=== PATIENT | female | born 1960 | race Hispanic/Latino ===

== ENCOUNTER 2016-09-01 20:34 | Emergency (ER) | payer OTHER ==
[~2016-09-01] VITALS: Ht 162.6 cm; Wt 70.9 kg
[~2016-09-01 20:34] MED LIST: LEVO50TA83 PO
[2016-09-01 21:01] VITALS: BP 169/81; PULSE 57; RESP 22; O2SAT 98
--- NOTE | 2016-09-01 22:21 | ED.REPORT ---
HPI-General Illness Date of Service Sep 01, 2016 ED Provider: Dr. Yossi Valdez MD A 55 year old female with a history of hyperlipidemia presents to the ED complaining of generalized fatigue that began earlier this afternoon. Patient reports one episode of chest discomfort and SOB. She states that her "head is tired". Her symptoms resolved temporarily after taking one dose of Lisinopril. She reports an episode of hypertension prior to the Lisinopril. Patient denies cough,abdominal pain, fever, chills or dysuria. Nursing Notes Stated Complaint: HIGH BLOOD PRESSURE Chief Complaint: General Complaint Nursing Notes Reviewed: Yes Allergies: Coded Allergies: No Known Drug Allergies (Verified Allergy, Unknown, 09/01/16) Scheduled Levothyroxine-Expunged Drug, Do Not Renew! (Synthroid-Expunged Drug, Do Not Renew!) 50 Mcg Tablet 50 MCG PO DAILY General Time Seen by MD: 22:20 Chief Complaint Other (Fatigue) Hx Obtained From: Patient Arrived By: Walk-in Sudden in Onset?: No Symptom Duration: Since onset Location: : Head Quality: Aching Radiation: : Does not radiate Severity: Current: Mild Severity: Maximum: Mild Associated with: Reports: Chest pain, Shortness of breath, Denies: Abdominal pain, Fever Pertinent Negative: Pt denies other symptoms Relieved by: Prescription meds Recent Healthcare: No recent doctor visit, No recent hospitalization Past Medical History Past Medical History Hyperlipidemia Past Surgical History None reported Social History Other Social History: Good social support, Local resident Ambulatory Status Independent Review of Systems Full Review of Systems Constitutional: Reports: Fatigue, Denies: Chills, Fever Respiratory: Reports: Shortness of breath Cardiovascular: Reports: Chest pain GI: Denies: Abdominal pain, Nausea, Vomiting Female: Denies: Dysuria Neurologic: Reports: Headache Complete sys rev & neg: except as marked. Physical Exam Vital Signs Vital Signs Date Time Temp Pulse Resp B/P Pulse Ox O2 Delivery O2 Flow Rate FiO2 09/02/16 01:43 61 17 120/50 96 Room Air 09/01/16 21:01 36.2 57 22 169/81 98 Room Air Initial VS: Reviewed, Vital signs abnormal Neck: Supple, Non-tender, Full range of motion Extremities: Vascular intact, Neuro intact, No swelling, No tenderness Skin: Warm, Dry, No cyanosis Neurologic: Alert, Oriented, Nonfocal Psychiatric: Mood/affect normal, Behavior normal, Normal thought content General/Constitutional: Awake, Alert, No acute distress Head / Eyes: Atraumatic, Normocephalic, PERRL Respiratory / Chest: Atraumatic, Breath sounds NL, Breath sounds = bilat, No respiratory distress Cardiovascular: Heart rate NL, Regular rhythm, Heart sounds NL Abdomen: Atraumatic, Soft, Non-tender Interpretation & Diagnostics Lab Results Interpretation Result Diagram: 09/01/16223409/01/16 2235 Test 09/01/16 22:35 09/01/16 23:00 White Blood Count 6.2th/mm3 (3.8-10.1) Red Blood Count 4.53mil/mm3 (3.90-5.20) Hemoglobin 13.2g/dL (12.0-15.6) Hematocrit 39.2% (35.0-46.0) Mean Corpuscular Volume 86.5fL (81-100) Mean Corpuscular Hemoglobin 29.1pg (27.0-35.0) Mean Corpuscular Hemoglobin Concent 33.7% (32.0-37.0) Red Cell Distribution Width 11.9% (12.3-15.4) Platelet Count 229bil/L (150-400) Neutrophils (%) (Auto) 36.6% (40-74) Lymphocytes (%) (Auto) 48.8% (14-46) Monocytes (%) (Auto) 12.6% (4-12) Eosinophils (%) (Auto) 1.8% (0-5) Basophils (%) (Auto) 0.2% (0-3) Sodium Level 138mEq/L (134-144) Potassium Level 4.0mEq/L (3.5-5.2) Chloride Level 98mEq/L (97-108) Carbon Dioxide Level 25mmol/L (18-29) Blood Urea Nitrogen 21mg/dL (6-24) Creatinine 0.58mg/dL (0.57-1.00) Estimat Glomerular Filtration Rate 155mL/min (>59) Glucose Level 126mg/dL (60-99) Calcium Level 9.4mg/dL (8.5-10.1) Magnesium Level 2.0mg/dL (1.6-2.6) Total Bilirubin 0.5mg/dL (0.0-1.2) Aspartate Amino Transf (AST/SGOT) 27U/L (0-50) Alanine Aminotransferase (ALT/SGPT) 51U/L (0-32) Alkaline Phosphatase 65U/L (25-150) Troponin T 0.010ug/L (0.0-0.011) Total Protein 7.6g/dL (6.4-8.4) Albumin 4.1g/dL (3.4-5.0) Hold Chong Top Tube Received (Received) Urine Color Straw (YELLOW) Urine Appearance Hazy (CLEAR,HAZY) Urine pH 5.5 (5.0-8.0) Urine Specific [place] 1.016 (1.003-1.035) Urine Protein Negativemg/dL (NEG,TRACE) Urine Glucose (UA) Negativemg/dL (NEGATIVE) Urine Ketones Negativemg/dL (NEGATIVE) Urine Occult Blood Negative (NEGATIVE) Urine Nitrite Negative (NEGATIVE) Urine Bilirubin Negative (NEGATIVE) Urine Urobilinogen Normalmg/dL (NORMAL) Urine Leukocyte Esterase Moderate (NEGATIVE) Urine RBC 0-2/hpf (0-2) Urine WBC 11-50/hpf (0-5) Urine Epithelial Cells Moderate/hpf (NONE-MOD) Urine Crystals None seen (NONE SEEN) Urine Bacteria Moderate/hpf (NONE-FEW) Urine Hyaline Casts None/lpf (NONE) Urine Granular Casts None seen (NONE SEEN) Urine Waxy Casts None seen (NONE SEEN) Urine Red Blood Cell Casts None seen (NONE SEEN) Urine White Blood Cell Casts None seen (NONE SEEN) Urine Mucus Present (None Seen) Urine Trichomonas None seen (NONE SEEN) Urine Yeast None (NONE SEEN) Urinalysis Comment None Urine Culture Reflexed Indicated Hold Urine Received (Received) Lab Results Interpretation: Greater than 50 white blood cells in the urine, culture pending. ECG Interpretation ECG Interpretation: Sinus Rhythm Rate 62 Time: 10:57 Interpreted by: ED physician X-Ray Chest Interpretation Chest Xray Interpretation: IMPRESSION: No acute Interpretation / Wet Read by: Wet read ED physician Re-Eval/Medical Decision Med Decision/Clinical Course 55-year-old female who presents with vague symptoms which may be related to high blood pressure at home. She took her medications and her blood pressure did normalize by the time she got here. Labs were unremarkable with the exception of white cells in her urine. She will be treated for urinary tract infection Time of Eval: 00:08 Patient Status: Condition improved Re-Evaluation/Progress Note: Patient is rechecked. Her symptoms have improved and she is agreeable to discharge at this time. All questions are addressed. She understands and agrees with the plan. Counseled Regarding: Diagnosis, Lab results, Need for follow-up, When/why to return to ED Discharge & Departure Primary Impression: Urinary tract infection Urinary tract infection type: site unspecified Hematuria presence: without hematuria Qualified Code: N39.0 - Urinary tract infection, site not specified Additional Impression: Labile hypertension Disposition: Home Discharge Condition All VS Reviewed: Yes Condition: Stable Patient Instructions: Urinary Tract Infection in Women (ED) Additional Instructions: Shagufta has a urinary tract infection. She was given Rocephin 2 g IV in the emergency room, strong long-acting IV antibiotic. Tomorrow she can start Keflex (cephalexin) 500 mg by mouth 3 times a day, #30 dispensed. Drink plenty of fluids. Cranberry juice. Recheck in 2-3 days if she is not improving. Repeat Urine in 2 or 3 2-3 weeks to make sure the infection gone. Her other symptoms were likely due to high blood pressure which was mostly corrected by the time she arrived here. Referrals: Keerthi Barnett MD (PCP) Mikhail Attestation Portions of this note were transcribed by Lazaro Marcial. I, Dr. Valdez personally performed the history, physical exam and medical decision-making; I reviewed and confirmed the accuracy of the information in the transcribed note. Signed by: Mikhail Amaya, 09/02/16 0146. copies to: Keerthi Barnett MD, Yossi Billy MD Sep 01, 2016 22:21 LAZARO MARCIAL Sep 01, 2016 22:29
[2016-09-01 22:47] LABS: BASOPHILS % (AUTO) 0.2 % (0-3); EOSINOPHILS % (AUTO) 1.8 % (0-5); MONOCYTES % (AUTO) 12.6 % (4-12); Mean Corpuscular Hemoglobin 29.1 pg (27.0-35.0); Mean Corpuscular Volume 86.5 fL (81-100); NEUTROPHILS % (AUTO) 36.6 % (40-74); Platelet Count 229 bil/L (150-400)
[2016-09-01 23:09] LABS: TROPONIN T 0.01 ug/L (0.0-0.011)
[2016-09-02 00:39] LABS: APPEARANCE,URINE HAZY (CLEAR,HAZY); COLOR,URINE STRAW (YELLOW); OCCULT BLOOD,URINE NEGATIVE (NEGATIVE); PH,URINE 5.5 (5.0-8.0); UROBILINOGEN,URINE NORMAL (NORMAL)
[2016-09-02] MEDS ORDERED: cefTRIAXone Inj 2,000 MG in Dextrose 5% Minibag Plus 50 ML IV ONE (00:50)
[2016-09-02 01:43] VITALS: BP 120/50; PULSE 61; RESP 17; O2SAT 96
--- NOTE | 2016-09-02 08:07 | DRSVH ---
PROCEDURE: X-RAY CHEST ONE VIEW, PORTABLE ([id number]) INDICATIONS: cp TECHNIQUE: One view of the chest was acquired. COMPARISON: None. FINDINGS: Surgical changes and devices: None. Lungs and pleura: No pleural effusions or pneumothorax. Lungs are clear. Mediastinum: Mediastinal contours appear normal. Heart size is normal. Bones and chest wall: No suspicious bony lesions. Overlying soft tissues appear unremarkable. IMPRESSION: Normal for age, source of chest pain is not seen. Dictated by: Kris Huizar M.D. on 09/02/2016 at 8:05 Approved by: Kris Huizar M.D. on 09/02/2016 at 8:05
[2016-09-02] MEDS ORDERED: _Cephalexin 500 mg Capsule PO SCH (08:30)
== END 2016-09-02 01:47 | disposition home or self-care (01) ==
LOC: SED 20:34
DX: N39.0 Urinary tract infection, site not specified (principal); I10 Essential (primary) hypertension; E78.5 Hyperlipidemia, unspecified
CPT/HCPCS: 36415; 71010; 80053; 81000; 83735; 84484; 85025; 87086; 87088; 93005; 96365; 99285; J0696

== ENCOUNTER 2016-12-19 12:20 | Emergency (ER) | payer OTHER ==
[~2016-12-19] VITALS: Ht 165.1 cm; Wt 93.6 kg
[2016-12-19 12:24] VITALS: BP 151/67; PULSE 63; RESP 17; O2SAT 99
[2016-12-19] MEDS ORDERED: 0.9% Sodium Chloride 1,000 ML IV ONE (12:57)
[2016-12-19] MEDS ORDERED: MetoCLOpramide 5 mg/mL 2 mL Inj IVPUSH ONE (13:00)
[2016-12-19] MEDS ORDERED: Ondansetron 2 mg/mL 2 mL Inj IVPUSH PRN (13:00)
[2016-12-19] MEDS ORDERED: Ketorolac 15 mg/mL Inj IVPUSH ONE (13:00)
[2016-12-19 13:04] LABS: BASOPHILS % (AUTO) 0.2 % (0-3); EOSINOPHILS % (AUTO) 1.7 % (0-5); MONOCYTES % (AUTO) 9.4 % (4-12); Mean Corpuscular Hemoglobin 29.5 pg (27.0-35.0); Mean Corpuscular Volume 84.3 fL (81-100); NEUTROPHILS % (AUTO) 34.2 % (40-74); Platelet Count 255 bil/L (150-400)
[2016-12-19 13:30] VITALS: BP 134/65; PULSE 55; RESP 17; O2SAT 96
[2016-12-19 13:44] LABS: Lipase 47 U/L (13-60)
[2016-12-19 13:45] LABS: TROPONIN T < 0.010 ug/L (0.0-0.011)
--- NOTE | 2016-12-19 14:18 | ED.REPORT ---
HPI-NVD Date of Service Dec 19, 2016 ED Provider: Rai Cotto MD The pt is a 56 y/o female w/ a hx of hyperlipidemia presenting to the ED via EMS due to vomiting onset three hours ago. The pt felt fine this morning, ate lunch, and began feeling ill. The pt is also experiencing dizziness. Denies diarrhea, or headache. No one else in her family is sick. No diarrhea. Moderate headache. Nursing Notes Stated Complaint: NAUSEA, VOMITING, SWEATING Chief Complaint: Vomiting Nursing Notes Reviewed: Yes Allergies: Coded Allergies: No Known Drug Allergies (Verified Allergy, Unknown, 09/01/16) Scheduled Levothyroxine-Expunged Drug, Do Not Renew! (Synthroid-Expunged Drug, Do Not Renew!) 50 Mcg Tablet 50 MCG PO DAILY Scheduled PRN Ondansetron ODT (Zofran ODT) 4 Mg Tablet 4 MG PO Q4H PRN PRN For Nausea General Time Seen by MD: 12:49 Chief Complaint Vomiting Arrived By: Ambulance Onset Occurred: 1 - 4 hours ago Symptom Duration: Since onset Recent Healthcare: No recent hospitalization, Recent doctor visit Similar Sx Previous: Yes Past Medical History Past Medical History Hyperlipidemia Denies: Diabetes mellitus Past Surgical History None reported Smoking History Unknown if Ever Smoker Social History Other Social History: Good social support, Local resident Ambulatory Status Independent Review of Systems GI: Reports: Vomiting, Denies: Diarrhea Neurologic: Reports: Dizziness, Denies: Headache Complete sys rev & neg: except as marked. Physical Exam Initial Vital Signs Vital Signs (First) Date Time Temp Pulse Resp B/P Pulse Ox O2 Delivery O2 Flow Rate FiO2 12/19/16 12:24 36.2 63 17 151/67 99 Room Air Initial VS: Reviewed Head / Eyes: Atraumatic, Normocephalic, PERRL ENT: Mucous membranes moist, Conjunctiva normal, No scleral icterus Neck: Supple, Non-tender, Full range of motion Respiratory: Breath sounds normal, Clear to auscultation, No respiratory distress Cardiovascular: Regular rate & rhythm, Heart sounds normal, Intact distal pulses Extremities: Vascular intact, Neuro intact, No swelling, No tenderness Skin: Warm, Dry, No cyanosis Neurologic: Alert, Oriented, Nonfocal Psychiatric: Mood/affect normal, Behavior normal, Normal thought content General/Constitutional: Awake, Alert Abdomen: Atraumatic, Soft, Non-tender Interpretation & Diagnostics Lab Results Interpretation Result Diagram: 12/19/16 1247 12/19/16 1247 Test 12/19/16 12:47 White Blood Count 10.2th/mm3 (3.8-10.1) Red Blood Count 4.98mil/mm3 (3.90-5.20) Hemoglobin 14.7g/dL (12.0-15.6) Hematocrit 42.0% (35.0-46.0) Mean Corpuscular Volume 84.3fL (81-100) Mean Corpuscular Hemoglobin 29.5pg (27.0-35.0) Mean Corpuscular Hemoglobin Concent 35.0% (32.0-37.0) Red Cell Distribution Width 11.8% (12.3-15.4) Platelet Count 255bil/L (150-400) Neutrophils (%) (Auto) 34.2% (40-74) Lymphocytes (%) (Auto) 54.2% (14-46) Monocytes (%) (Auto) 9.4% (4-12) Eosinophils (%) (Auto) 1.7% (0-5) Basophils (%) (Auto) 0.2% (0-3) Sodium Level 142mEq/L (134-144) Potassium Level 3.8mEq/L (3.5-5.2) Chloride Level 102mEq/L (97-108) Carbon Dioxide Level 22mmol/L (18-29) Blood Urea Nitrogen 17mg/dL (6-24) Creatinine 0.59mg/dL (0.57-1.00) Estimat Glomerular Filtration Rate 152mL/min (>59) Glucose Level 132mg/dL (60-99) Calcium Level 9.3mg/dL (8.5-10.1) Magnesium Level 2.0mg/dL (1.6-2.6) Total Bilirubin 0.7mg/dL (0.0-1.2) Aspartate Amino Transf (AST/SGOT) 33U/L (0-50) Alanine Aminotransferase (ALT/SGPT) 47U/L (0-32) Alkaline Phosphatase 70U/L (25-150) Troponin T < 0.010ug/L (0.0-0.011) Total Protein 8.2g/dL (6.4-8.4) Albumin 4.5g/dL (3.4-5.0) Lipase 47U/L (13-60) ECG Interpretation ECG Interpretation: Rate 55 NSR Time: 13:14 Interpreted by: ED physician Re-Eval/Medical Decision Med Decision/Clinical Course After IV saline and antiemetics the patient feels quite a bit better. Source of Hx: Old records Counseled Regarding: Diagnosis, Lab results, Need for follow-up, When/why to return to ED Discharge & Departure Impression: Primary Impression: Nausea & vomiting Vomiting type: unspecified Vomiting Intractability: unspecified Qualified Code: R11.2 - Nausea with vomiting, unspecified Disposition: Home Discharge Condition All VS Reviewed: Yes Condition: Stable Patient Instructions: Acute Nausea and Vomiting (ED) Additional Instructions: Thank for you entrusting us with your care today. I do not suspect you have anything dangerous. Please rest for 1-2 days and take the anti-nausea medication as recommended. I suspect you feel much better by tomorrow and completely normal by Saturday. I will make an appointment for you to see your primary care provider next Saturday. Please return to the emergency department if you experience any new or worsening symptoms. I hope you feel better soon. [employer] Translate Kristi por confiarnos leon cuidado hoy. No sospecho que tienes algo peligroso. Descanse por 1-2 desir y tome la medicacin anti-nausea bj se recomienda. Sospecho que te sentirs mucho mejor maana y completamente normal para el viernes. Voy a hacer fern kwasi para que екатерина a leon proveedor de atencin primaria el pr ximo es. Por favor regrese al departamento de emergencias si experimenta sntomas nuevos o que empeoran. Espero que pronto te sientas mejor. Referrals: Keerthi Barnett MD (PCP) Scribe Attestation Portions of this note were transcribed by Shreyas Irvin. I, Dr. Cotto personally performed the history, physical exam and medical decision-making; I reviewed and confirmed the accuracy of the information in the transcribed note. copies to: Keerthi Barnett MD, Kirk H MD Dec 19, 2016 14:18 Shreyas Irvin Dec 19, 2016 14:27
[2016-12-19] MEDS ORDERED: ONDA4TAB9 PO (14:45)
[2016-12-19 14:56] VITALS: BP 119/68; PULSE 61; RESP 15; O2SAT 99
[2016-12-19 15:01] VITALS: BP 119/68; PULSE 61; RESP 15; O2SAT 99
== END 2016-12-19 15:02 | disposition home or self-care (01) ==
LOC: EDBD 12:20 → EDSEX 12:20 → SED 12:20
DX: R11.2 Nausea with vomiting, unspecified (principal); R42 Dizziness and giddiness; E78.5 Hyperlipidemia, unspecified
CPT/HCPCS: 36415; 80053; 83690; 83735; 84484; 85025; 93005; 96361; 96374; 96375; 99285; J1885; J2765; J7030